=== PATIENT | female | born 1970 | race Caucasian/White ===

== ENCOUNTER → 2016-03-28 | Outpatient (CLI) | payer OTHER ==
--- NOTE | 2016-03-28 10:49 | REPMRS ---
Patient History The patient states she had a clinical breast exam in May 2015. Family history of breast cancer in mother at age 50 or over. Took hormonal contraceptives for 5 years. Digital Mammo Screening Bilat: March 28, 2016 - Exam #: [id number] Bilateral CC and MLO view(s) were taken. Technologist: Lynda Shaffer, Technologist Prior study comparison: March 09, 2014, bilateral digital mammo screening bilat performed at [facility]. December 29, 2012, bilateral bilat screen digital mammo, performed at [facility] ([facility]). December 18, 2011, right breast digital mammo diagnostic unilateral performed at [facility]. FINDINGS: The breast tissue is heterogeneously dense. This may lower the sensitivity of mammography. There is a moderate amount of heterogeneously dense fibroglandular tissue which is fairly symmetric. There is no interval development of dominant mass, architectural distortion, or clustered microcalcification typical of malignancy. There has been no change in the appearance of the mammogram from the prior studies. ASSESSMENT: BI-RADS/ACR category 1 mammogram. Negative. Recommendation Routine screening mammogram of both breasts in 1 year (for women over age 40). This mammogram was interpreted with the aid of an FDA-approved computer-aided dectection system. Electronically Signed By: Ramone Villagomez MD 03/28/16 [id number]
== END ==
LOC: M RAD 10:11
PROVIDERS: ATTEND Internal Medicine
DX: Z12.31 Encounter for screening mammogram for malignant neoplasm of breast (principal); Z80.3 Family history of malignant neoplasm of breast

== ENCOUNTER 2017-05-12 15:45 | Outpatient (CLI) | payer OTHER | END 2017-05-14 | LOC: M RAD 15:45 | DX: Z12.31 Encounter for screening mammogram for malignant neoplasm of breast (principal); Z80.3 Family history of malignant neoplasm of breast ==

== ENCOUNTER → 2018-08-07 | Outpatient (CLI) | payer OTHER ==
--- NOTE | 2018-08-07 19:26 | REPMRS ---
Patient History The patient states she had a clinical breast exam in 06/2018. Family history of breast cancer at age 50 or over in mother. Took hormonal contraceptives for 5 years. Digital Woman Screen Mammo: August 07, 2018 - Exam #: [id number] Bilateral CC and MLO view(s) were taken. Technologist: Lorie Huber, Technologist Prior study comparison: March 28, 2016, bilateral digital mammo screening bilat, performed at [facility]. December 29, 2012, bilateral bilat screen digital mammo, performed at [facility] ([facility]). FINDINGS: The breast tissue is extremely dense which could obscure a lesion on mammography. Bilateral screening digital mammgram with tomosynthesis: The patient states that there are no palpable abnormalities or other breast complaints. The patient's Tyrer-[place]uzie[place] Lifetime Breast Carcinoma Risk is : 22.5% The breasts are extremely dense, which lowers the sensitivity of mammography.. There is no interval development of dominant mass, areas of architectural distortion, or clustered microcalcification typical of malignancy. There are no additional fidnings on tomosynthesis. This mammogram was interpreted with the aid of an FDA-approved computer-aided dectection system. A. Negative x-ray reports should not delay biopsy if a dominant or clinically suspicious mass is present. B. Not all cancers are identified by mammography. C. Adenosis and dense breast may obscure an underlying neoplasm. No significant changes when compared with prior studies. Assessment: BI-RADS/ACR category 1 mammogram. Negative Mammogram. Recommendation Routine screening mammogram in 1 year (for women over age 40). Annual MRI is recommended for women with Tyrer-Cuzick Lifetime Risk of 20% or greater. This mammogram was interpreted with the aid of an FDA-approved computer-aided dectection system. A. Negative x-ray reports should not delay biopsy if a dominant or clinically suspicious mass is present. B. Not all cancers are identified by mammography. C. Adenosis and dense breast may obscure an underlying neoplasm. Electronically Signed By: George Woods M.D. 08/07/18 [id number]
== END ==
LOC: M WHC 15:06
PROVIDERS: ATTEND Nurse Practitioner Women's Health
DX: Z12.31 Encounter for screening mammogram for malignant neoplasm of breast (principal); Z80.3 Family history of malignant neoplasm of breast; Z92.0 Personal history of contraception

== ENCOUNTER → 2018-08-28 | Outpatient (CLI) | payer OTHER ==
[~2018-08-28] MED LIST: PROHANCE 279.3MG/ML 15ML VIAL (A9576) As Ordered ONE
--- NOTE | 2018-08-29 06:31 | REP ---
BILATERAL BREAST MRI WITH AND WITHOUT CONTRAST: Lifetime risk of breast cancer 22.5%. Correlation mammogram 08/07/2018 which showed dense breast parenchyma. TECHNIQUE: Multiple sequences obtained in the axial, coronal, and sagittal planes prior to and following the intravenous administration of 10.4 mL ProHance. Images are evaluated in the [employer] software including dynamic post IV Gadolinium axial T1 fat sat images, subtraction images, color overlay and CAD images, as well as MIP reconstruction images. Moderate to extreme pattern of breast parenchyma is seen bilaterally. There are a few scattered bilateral subcentimeter cysts present. No axillary adenopathy is seen. There is mild background parenchymal enhancement. No suspicious enhancing mass is seen. No morphologic abnormality is seen. IMPRESSION: BIRADS category 2 benign bilateral breast MRI. Scattered small cysts in each breast. No suspicious mass or morphologic abnormality. Supplemental screening MRI of the breasts is recommended for patients with lifetime risk of breast cancer 20% or greater. Electronically Signed by George Shea MD 08/31/2018 01:10 P
== END ==
LOC: M RAD 14:44
PROVIDERS: ATTEND Nurse Practitioner Women's Health
DX: N60.01 Solitary cyst of right breast (principal); N60.02 Solitary cyst of left breast
CPT/HCPCS: A9576; C8908

== ENCOUNTER → 2020-04-14 | Outpatient (CLI) | payer OTHER ==
--- NOTE | 2020-04-14 16:44 | REPMRS ---
Patient History The patient states she had a clinical breast exam in April 2019. Family history of breast cancer at age 50 or over in mother. Took hormonal contraceptives for 5 years. Digital Woman Screen Mammo: April 14, 2020 - Exam #: [id number] Bilateral CC and MLO view(s) were taken. Technologist: RT Arielle Prior study comparison: August 07, 2018, bilateral digital woman screen mammo performed at [facility] [place]. May 14, 2017, bilateral digital mammo screening bilat, performed at [facility]. March 28, 2016, bilateral digital mammo screening bilat, performed at [facility]. FINDINGS: The breast tissue is heterogeneously dense. This may lower the sensitivity of mammography. The Volpara volumetric breast density category is: C. There is a moderate amount of heterogeneously dense fibroglandular tissue which is fairly symmetric. There is no interval development of dominant mass, architectural distortion, or grouped microcalcification typical of malignancy. There has been no change in the appearance of the mammogram from the prior studies. 3-D tomosynthesis shows no additional findings. Assessment: BI-RADS/ACR category 1 mammogram. Negative Mammogram. Recommendation Breast MRI of both breasts in 6 months. Routine screening mammogram of both breasts in 1 year (for women over age 40). This patient's [facility] Lifetime Breast Cancer RIsk is estimated at 21.8 %. Annual screening Breast MRI scanniing is recommended for patient's whose lifetime risk assessment is over 20%. This mammogram was interpreted with the aid of an FDA-approved computer-aided dectection system. Electronically Signed By: Ramone Villagomez MD 04/14/20 [id number]
== END ==
LOC: M WHC 16:06
PROVIDERS: ATTEND Obstetrics & Gynecology
DX: Z12.31 Encounter for screening mammogram for malignant neoplasm of breast (principal); Z80.3 Family history of malignant neoplasm of breast; Z92.0 Personal history of contraception

== ENCOUNTER → 2021-11-07 | Outpatient (CLI) | payer OTHER ==
[~2021-11-07] MED LIST changes: -PROHANCE 279.3MG/ML 15ML VIAL (A9576) As Ordered ONE; +VITA500C24 PO
== END ==
LOC: M LABSMTC 09:49
PROVIDERS: ATTEND Anesthesiology
DX: Z01.812 Encounter for preprocedural laboratory examination (principal); Z11.52 Encounter for screening for COVID-19

== ENCOUNTER 2021-11-12 07:55 | Day surgery (SDC) | payer OTHER ==
[~2021-11-12] VITALS: Ht 152.4 cm; Wt 55.8 kg
[~2021-11-12 07:55] MED LIST changes: +NS 1,000 ML IV ONE
[2021-11-12] MEDS ORDERED: propofoL 200 MG/20 ML VIAL As Ordered ONE ×2 (08:34→09:39)
[2021-11-12] MEDS ORDERED: LIDOCAINE 2% 100MG/5ML SDV (FOR ANES.) As Ordered ONE (08:34)
[2021-11-12 10:06] VITALS: BP 117/66
== END 2021-11-12 10:08 | disposition home or self-care (01) ==
LOC: M OPP 07:55
PROVIDERS: ATTEND Internal Medicine Gastroenterology
DX: Z12.11 Encounter for screening for malignant neoplasm of colon (principal); K64.0 First degree hemorrhoids; Z87.891 Personal history of nicotine dependence

== ENCOUNTER → 2022-07-23 | Outpatient (CLI) | payer OTHER ==
[~2022-07-23] MED LIST changes: -NS 1,000 ML IV ONE
== END ==
LOC: M WHC 07:51
PROVIDERS: ATTEND Registered Nurse
DX: N64.9 Disorder of breast, unspecified (principal)

== ENCOUNTER → 2022-09-20 | Outpatient (REF) | payer OTHER | LOC: M SFHCWAGY 17:07 | PROVIDERS: ATTEND Nurse Practitioner Family | DX: Z12.4 Encounter for screening for malignant neoplasm of cervix (principal) ==

== ENCOUNTER → 2022-11-05 | Outpatient (CLI) | payer OTHER | LOC: M WHC 15:13 | PROVIDERS: ATTEND Internal Medicine | DX: R92.2 Inconclusive mammogram (principal) ==

== ENCOUNTER → 2023-12-12 | Outpatient (REF) | payer OTHER ==
[2023-12-16 15:03] LABS: HPV APTIMA Not Detected (Not Detected)
== END ==
LOC: M SFHCWAGY 17:42
PROVIDERS: ATTEND Nurse Practitioner Family
DX: Z12.4 Encounter for screening for malignant neoplasm of cervix (principal)